=== PATIENT | male | born 1955 | race Caucasian/White ===

== ENCOUNTER → 2019-09-20 | Outpatient (CLI) | payer MEDICARE, OTHER ==
[2019-09-20 11:35] LABS: EOS # 0.2 (0.04-0.40); EOS % 1.3 % (0.0-4.0); HEMATOCRIT 48.8 % (42.0-52.0); HEMOGLOBIN 16.6 g/dL (13.5-18.0); LYMPH# 2.4 (1.50-4.00); MEAN CELL VOLUME 83 fl (78-100); MEAN CORPUSCULAR HEMOGLOBIN 28 pg (27-31); MEAN CORPUSCULAR HGB CONC 34 g/dL (33-37); MEAN PLATELET VOLUME 10.7 fl (7.4-10.4); MONO # 0.7 (0.20-0.80); NEU # 8.1 (1.40-6.50); PLATELET COUNT 298 K/mm3 (130-400); RED BLOOD COUNT 5.87 M/mm3 (4.20-5.60); RED CELL DISTRIBUTION WIDTH 13.2 % (11.5-14.5); WHITE BLOOD COUNT 11.5 K/mm3 (4.8-10.8)
[2019-09-20 11:39] LABS: POTASSIUM 4.3 mmol/L (3.5-5.1)
[2019-09-20 11:40] LABS: ALBUMIN 4.6 g/dL (3.4-4.8)
[2019-09-20 11:41] LABS: CALCIUM 9.8 mg/dL (8.3-10.5)
[2019-09-20 11:42] LABS: TOTAL PROTEIN 8.4 g/dL (6.2-8.1)
[2019-09-20 11:44] LABS: TOTAL BILIRUBIN 0.7 mg/dL (0.2-1.2)
[2019-09-20 11:49] LABS: MAGNESIUM 1.6 mg/dL (1.60-2.60)
[2019-09-20 12:20] LABS: PROTHROMBIN TIME 10.4 SECONDS (9.0-12.0)
[2019-09-20 12:30] LABS: URINE APPEARANCE CLEAR; URINE COLOR YELLOW
[2019-09-20 12:31] LABS: PH-URINE 6.5 (5.0 - 8.0); URINE BILIRUBIN NEGATIVE (NEGATIVE); URINE BLOOD NEGATIVE (NEGATIVE); URINE GLUCOSE NEGATIVE (NEGATIVE); URINE KETONE 2+ (NEGATIVE); URINE LEUKOCYTE ESTERASE NEGATIVE (NEGATIVE); URINE NITRATE NEGATIVE (NEGATIVE); URINE PROTEIN(semi-quant) 1+ mg/dL (NEGATIVE); URINE UROBILINOGEN NORMAL (NORMAL); URINE WBC 0-1 /hpf (0-3)
== END ==
LOC: RAD 10:07
PROVIDERS: Internal Medicine
DX: Z01.818 Encounter for other preprocedural examination (principal)

== ENCOUNTER → 2019-09-28 | Day surgery (SDC) | payer MEDICARE, OTHER | LOC: MSO | DX: E11.36 Type 2 diabetes mellitus with diabetic cataract (principal); H25.811 Combined forms of age-related cataract, right eye; M19.90 Unspecified osteoarthritis, unspecified site; G43.909 Migraine, unspecified, not intractable, without status migrainosus; F17.210 Nicotine dependence, cigarettes, uncomplicated; F32.9 Major depressive disorder, single episode, unspecified; Z79.84 Long term (current) use of oral hypoglycemic drugs; Z88.8 Allergy status to other drugs, medicaments and biological substances; Z20.828 Contact with and (suspected) exposure to other viral communicable diseases | CPT/HCPCS: 00142; J0171; J2250; V2632 ==

== ENCOUNTER → 2019-11-30 | Day surgery (SDC) | payer MEDICARE, OTHER | LOC: MSO 09:36 | DX: E11.36 Type 2 diabetes mellitus with diabetic cataract (principal); H25.812 Combined forms of age-related cataract, left eye; M19.90 Unspecified osteoarthritis, unspecified site; G43.909 Migraine, unspecified, not intractable, without status migrainosus; Z88.8 Allergy status to other drugs, medicaments and biological substances; Z79.4 Long term (current) use of insulin; F17.210 Nicotine dependence, cigarettes, uncomplicated | CPT/HCPCS: 00142; J0171; J2250; J3010; V2787 ==

== ENCOUNTER 2020-01-19 18:56 | Emergency (ER) | payer MEDICARE, OTHER ==
[~2020-01-19] VITALS: Ht 188 cm; Wt 111.4 kg
[2020-01-19] MEDS ORDERED: DIABETA 5MG5 MG/TAB PO (19:07)
[2020-01-19] MEDS ORDERED: METFORMIN HCL500 M2 PO (19:07)
[2020-01-19] MEDS ORDERED: DAPSONE100 M1 PO (19:08)
[2020-01-19] MEDS ORDERED: NATURE'S BLEND400 IU PO (19:09)
[2020-01-19 20:00] VITALS: BP 140/81
== END 2020-01-19 20:00 | disposition home or self-care (01) ==
LOC: ED 18:56
DX: S01.02XA Laceration with foreign body of scalp, initial encounter (principal); F17.210 Nicotine dependence, cigarettes, uncomplicated; E11.9 Type 2 diabetes mellitus without complications; Z23 Encounter for immunization; Z79.84 Long term (current) use of oral hypoglycemic drugs; W26.8XXA Contact with other sharp object(s), not elsewhere classified, initial encounter; Y92.009 Unspecified place in unspecified non-institutional (private) residence as the place of occurrence of the external cause
CPT/HCPCS: 90715

== ENCOUNTER 2021-07-20 16:03 | Emergency (ER) | payer MEDICARE, OTHER ==
[~2021-07-20] VITALS: Ht 188 cm; Wt 110.0 kg
[~2021-07-20 16:03] MED LIST: DAPSONE100 M1 PO; DIABETA 5MG5 MG/TAB PO; METFORMIN HCL500 M2 PO; NATURE'S BLEND400 IU PO
[2021-07-20 16:44] LABS: BASO # 0.03 K/mm3 (0.02-0.10); EOS # 0.02 K/mm3 (0.04-0.40); EOS % 0.1 % (0.0-4.0); HEMATOCRIT 42.6 % (42.0-52.0); HEMOGLOBIN 14.5 g/dL (13.5-18.0); LYMPH# 0.95 K/mm3 (1.50-4.00); MEAN CELL VOLUME 82 fl (78-100); MEAN CORPUSCULAR HEMOGLOBIN 28 pg (27-31); MEAN CORPUSCULAR HGB CONC 34 g/dL (33-37); MONO # 0.69 K/mm3 (0.20-0.80); NEU # 11.79 K/mm3 (1.40-6.50); PLATELET COUNT 267 K/mm3 (130-400); RED BLOOD COUNT 5.17 M/mm3 (4.20-5.60); RED CELL DISTRIBUTION WIDTH 13.9 % (11.5-14.5); WHITE BLOOD COUNT 13.5 K/mm3 (4.8-10.8)
[2021-07-20 17:00] LABS: ALBUMIN 4.3 g/dL (3.4-4.8)
[2021-07-20 17:01] LABS: POTASSIUM 3.5 mmol/L (3.5-5.1)
[2021-07-20 17:02] LABS: CALCIUM 9.6 mg/dL (8.3-10.5)
[2021-07-20 17:03] LABS: TOTAL PROTEIN 7.3 g/dL (6.2-8.1)
[2021-07-20 17:05] LABS: TOTAL BILIRUBIN 0.6 mg/dL (0.2-1.2)
[2021-07-20 17:09] LABS: TROPONIN-I < 0.030 ng/mL (<0.030)
[2021-07-20] MEDS ORDERED: DAPSONE25 M1 PO (17:18)
[2021-07-20] MEDS ORDERED: LEVOTHYROXINE175 MCG PO (17:18)
[2021-07-20 19:14] LABS: URINE APPEARANCE CLEAR; URINE BILIRUBIN NEGATIVE (NEGATIVE); URINE BLOOD NEGATIVE (NEGATIVE); URINE COLOR STRAW; URINE GLUCOSE NEGATIVE (NEGATIVE); URINE KETONE NEGATIVE (NEGATIVE); URINE LEUKOCYTE ESTERASE NEGATIVE (NEGATIVE); URINE NITRATE NEGATIVE (NEGATIVE); URINE PROTEIN(semi-quant) NEGATIVE (NEGATIVE); URINE UROBILINOGEN NORMAL (NORMAL); URINE WBC 0-1 /hpf (0-3)
[2021-07-20 20:35] VITALS: BP 123/89
== END 2021-07-20 20:35 | disposition left against medical advice (07) ==
LOC: ED 16:03
PROVIDERS: Family Medicine
DX: S00.03XA Contusion of scalp, initial encounter (principal); S51.812A Laceration without foreign body of left forearm, initial encounter; S30.0XXA Contusion of lower back and pelvis, initial encounter; E11.649 Type 2 diabetes mellitus with hypoglycemia without coma; F17.200 Nicotine dependence, unspecified, uncomplicated; Z79.84 Long term (current) use of oral hypoglycemic drugs; Z23 Encounter for immunization; W18.39XA Other fall on same level, initial encounter
CPT/HCPCS: 90715